=== PATIENT | female | born 1955 | race Caucasian/White ===

== ENCOUNTER 2019-11-02 15:58 | Emergency (ER) | payer MEDICARE, OTHER ==
[2019-11-02] MEDS ORDERED: Famotidine In NaCl 20 mg/50 ml Premix Bag ONE ×2 (16:36→16:38)
[2019-11-02] MEDS ORDERED: Ondansetron PF 4 MG/2 ML Vial ONE (16:36)
[2019-11-02 16:40] LABS: #Basophils 0.1 thou/uL (0.0-0.2); #Eosinphils 0.2 thou/uL (0.0-0.7); #Lymphocytes 1.7 thou/uL (1.20-3.40); #Monocytes 0.7 thou/uL (0.11-0.59); #Neutrophils 3.3 thou/uL (1.40-6.50); %Basophils 1.5 % (0.0-1.0); %Eosinophils 3.2 % (0.0-10.0); %Monocytes 11.8 % (0.0-10.0); %Neutrophils 54.6 % (42.0-75.0); Hemoglobin 13.5 g/dL (12.0-16.0); Mean Corpuscular HGB CONC 31.6 g/dL (32.0-36.0); Mean Corpuscular Hemoglobin 30.7 pg (27.0-31.0); Mean Corpuscular Volume 96.9 fL (78.0-98.0); Mean Platelet Volume 7.1 fL (7.4-10.4); Platelet Count 226 thou/uL (130-400); RBC Distribution Width 12.6 % (11.5-14.5); Red Blood Cell (RBC) Count 4.42 mill/uL (4.20-5.40)
[2019-11-02 16:52] LABS: ALT (SGPT) 34 U/L (8-55); AST (SGOT) 22 U/L (5-34); Albumin 4.4 g/dL (3.4-4.8); Alkaline Phosphatase 69 U/L (40-110); Anion Gap 16 mmol/L (10-20); BUN (Urea Nitrogen) 25 mg/dL (9.8-20.1); Bilirubin, Total 0.3 mg/dL (0.2-1.2); Calc. Creatinine Clearance 0 mL/min (70-130); Calcium 10.2 mg/dL (7.8-10.44); Carbon Dioxide 30 mmol/L (23-31); Chloride 99 mmol/L (98-107); Estimated GFR-MDRD 66; Globulin 3.1 g/dL (2.4-3.5); Glucose 94 mg/dL (80-115); Lipase 35 U/L (8-78); Potassium 4.2 mmol/L (3.5-5.1); Protein, Total 7.5 g/dL (6.0-8.3); Sodium 141 mmol/L (136-145)
== END 2019-11-02 17:20 | disposition home or self-care (01) ==
LOC: BURERS 15:58
DX: R10.13 Epigastric pain (principal); R11.0 Nausea; E78.5 Hyperlipidemia, unspecified; I10 Essential (primary) hypertension; K21.9 Gastro-esophageal reflux disease without esophagitis; F17.290 Nicotine dependence, other tobacco product, uncomplicated; Z79.899 Other long term (current) drug therapy; Z79.82 Long term (current) use of aspirin
CPT/HCPCS: 36415; 80053; 83690; 85025; 96365; 96375; J2405

== ENCOUNTER 2020-05-17 14:52 | Emergency (ER) | payer MEDICARE, OTHER ==
[2020-05-17] MEDS ORDERED: HYDROcodone/Acetaminophen 10/325 mg Tablet ONE (15:03)
[2020-05-17] MEDS ORDERED: Ibuprofen 800 MG TAB ONE (15:04)
--- NOTE | 2020-05-17 17:38 | RAD ---
LEFT HIP 2 VIEWS: Date: 05/17/2020 Comparison is made with films done earlier the same day at [facility] in [place]. Th e patient has apparently suffered additional trauma in the interval. No fracture, dislocation, or joint space narrowing seen. The adjacent pubic ring appears intact. The bony pelvis as a whole appears intact and the SI joints are symmetrical. IMPRESSION: No acute findings. POS: HOME
--- NOTE | 2020-05-17 17:56 | RAD ---
LEFT KNEE FOUR VIEWS: 05/17/20 Comparison is made with the 06/27/13 study. The total knee arthroplasty is in place as before. There is no sign of loosening of the hardware. No acute fracture was demonstrated. No joint effusion was seen. IMPRESSION: No acute traumatic finding. POS: HOME
== END 2020-05-17 16:05 | disposition home or self-care (01) ==
LOC: BURERS 14:52
DX: S83.92XA Sprain of unspecified site of left knee, initial encounter (principal); S70.02XA Contusion of left hip, initial encounter; K21.9 Gastro-esophageal reflux disease without esophagitis; I73.9 Peripheral vascular disease, unspecified; E78.5 Hyperlipidemia, unspecified; I10 Essential (primary) hypertension; K58.9 Irritable bowel syndrome, unspecified; Z87.891 Personal history of nicotine dependence; Z79.82 Long term (current) use of aspirin; Z79.899 Other long term (current) drug therapy; W10.1XXA Fall (on)(from) sidewalk curb, initial encounter
CPT/HCPCS: 99283